=== PATIENT | female | born 1955 | race Caucasian/White ===

== ENCOUNTER 2017-11-17 21:48 | Emergency (ER) | payer BC ==
[2017-11-17 22:26] LABS: #Basophils 0.2 thou/uL (0.0-0.2); #Eosinphils 0.8 thou/uL (0.0-0.7); #Lymphocytes 5.3 thou/uL (1.20-3.40); #Monocytes 1.4 thou/uL (0.11-0.59); %Basophils 1.1 % (0.0-1.0); %Eosinophils 5.3 % (0.0-10.0); %Lymphocytes 33.7 % (21.0-51.0); %Monocytes 8.8 % (0.0-10.0); %Neutrophils 51.2 % (42.0-75.0); Hemoglobin 13.5 g/dL (12.0-16.0); Mean Corpuscular HGB CONC 33.5 g/dL (32.0-36.0); Mean Corpuscular Hemoglobin 33.5 pg (27.0-31.0); Mean Platelet Volume 9.1 fL (7.4-10.4); Platelet Count 260 thou/uL (130-400); RBC Distribution Width 11.8 % (11.5-14.5); Red Blood Cell (RBC) Count 4.03 mill/uL (4.20-5.40); White Blood Cell (WBC) Count 15.6 thou/uL (4.8-10.8)
[2017-11-17 22:43] LABS: ALT (SGPT) 27 U/L (8-55); AST (SGOT) 24 U/L (5-34); Albumin 4.4 g/dL (3.4-4.8); Alkaline Phosphatase 102 U/L (40-150); Anion Gap 13 mmol/L (10-20); BUN (Urea Nitrogen) 29 mg/dL (9.8-20.1); Bilirubin, Total 0.7 mg/dL (0.2-1.2); Calc. Creatinine Clearance 0 mL/min (70-130); Calcium 9.1 mg/dL (7.8-10.44); Carbon Dioxide 20 mmol/L (23-31); Chloride 109 mmol/L (98-107); Estimated GFR-MDRD 36; Globulin 2.6 g/dL (2.4-3.5); Glucose 102 mg/dL (80-115); Lipase 15 U/L (8-78); Potassium 4.4 mmol/L (3.5-5.1); Sodium 138 mmol/L (136-145)
[2017-11-17 22:51] LABS: Bilirubin Small (Negative); Blood, Urine Negative (Negative); Clarity CLOUDY (Clear); Glucose, Urine (Dipstick) Negative (Negative); Leukocyte Moderate (Negative); Nitrite Negative (Negative); Protein, Urine (Dipstick) Negative (Neg-Trace); Specific Gravity, Urine 1.023 (1.002-1.036)
[2017-11-17 22:53] LABS: Bacteria/HPF None Seen HPF (None Seen); Pathc Cast-AUWi Flag 3.11 (0-2.49); Squamous Epithelial 0-3 HPF (0-3)
[2017-11-17 23:00] LABS: Hyaline Casts/LPF 7-10 HYALINE CAST LPF (0-3 Hyaline)
--- NOTE | 2017-11-17 23:42 | CT ---
ABDOMEN AND PELVIC CT NONCONTRAST 11/17/17 COMPARISON: 05/05/17 CLINICAL HISTORY: Abdominal pain. Abdominal cramping new onset. FINDINGS: Imaged lung bases are clear. Evidence of prior cholecystectomy. There is anastomotic suture material seen within bowel of the left abdomen. Postoperative change also seen at the gastroesophageal region. Bowel is incompletely assessed without IV or enteric contrast. There is no urolithiasis or obstructi ve uropathy. There is extensive retained fecal material which is predominately fat density. Scattere d vascular calcification present. There is postoperative change of the lumbosacral spine. Otherwise, no acute process is seen. IMPRESSION: 1. No urolithiasis or obstructive uropathy. 2. Evaluation is otherwise limited on the basis of noncontrast technique. 3. There is extensive retained fecal material in the left colon compatible with constipation. POS: [facility]
== END 2017-11-18 00:05 | disposition home or self-care (01) ==
LOC: ERS 21:48
DX: N39.0 Urinary tract infection, site not specified (principal); K59.00 Constipation, unspecified; F32.9 Major depressive disorder, single episode, unspecified; M06.9 Rheumatoid arthritis, unspecified; I10 Essential (primary) hypertension
CPT/HCPCS: 36415; 74176; 80053; 81003; 81015; 83690; 85025; 96360

== ENCOUNTER 2018-01-22 13:47 | Outpatient (CLI) | payer BC | END 2018-01-22 13:48 | disposition home or self-care (01) | LOC: BICCT 13:47 | PROVIDERS: ATTEND Family Medicine | DX: R10.13 Epigastric pain (principal); J90 Pleural effusion, not elsewhere classified; J18.1 Lobar pneumonia, unspecified organism | CPT/HCPCS: 71250; 74150 ==

== ENCOUNTER 2018-02-08 19:15 | Emergency (ER) | payer BC | END 2018-02-08 19:27 | disposition left against medical advice (07) | LOC: ERS 19:15 | DX: Z53.21 Procedure and treatment not carried out due to patient leaving prior to being seen by health care provider (principal) ==

== ENCOUNTER 2018-05-07 12:41 | Outpatient (CLI) | payer MEDICARE, BC ==
--- NOTE | 2018-05-07 15:20 | CT ---
LUMBAR SPINE CT NONCONTRAST: Date: 05/07/18 CLINICAL HISTORY: Lumbar radiculopathy. Reference made to MRI lumbar spine dated 11/24/16. FINDINGS: There is postoperative fusion, on the left, involving L5-S1, with left L5 and left S1 pedicle screws and an intervening left side vertical jaimee. L5-S1 disc prosthesis is present with osseous incorporatio n spanning the left aspect of the ramona disc space. No significant perihardware lucency. L5-S1: Evidence of prior left laminectomy. Broad based osteophyte ridge is present with mild effacement of t he ventral vertebral canal. There is mild osseous narrowing of each neural foramen. L4-5: Evidence of posterior decompression. There is a broad based disc osteophyte along with bilateral dege nerative facet hypertrophy resulting in mild central canal stenosis. There is moderate left and mild right neural foraminal narrowing. Added soft tissue density of this region may relate to epidural fib rosis, although limited on the basis of this exam. L3-4: There is moderate central canal stenosis. Evidence of prior decompression of the posterior elements. Bilateral moderate neural foraminal stenosis is present. L2-3: There is mild retrolisthesis of L2 on L3. There is mild central canal stenosis with a broad based ost eophyte present. Mild left and moderate right neural foraminal stenosis is demonstrated. There is carlie dence of posterior decompression. L1-2: There is evidence of posterior decompression. Mild effacement of the ventral aspect of the vertebral canal on the basis of broad based disc osteophyte. There is moderate right and mild left neural rohan inal narrowing. T12-L1: Disc osteophyte complex present with mild narrowing of central canal. No high grade osseous compromis e of the neural foramina. There is evidence of vascular calcification and prior cholecystectomy. Multifocal sclerosis of the regional skeletal structures is related to degenerative change. Superimpo sed focal areas of lucency may be related to osseous demineralization. A prominent degree of levoscoliosis is seen, with epicenter at the L2-3 level. IMPRESSION: Postoperative lumbar spine with extensive, multilevel degenerative change as outlined above. POS: [facility]
--- NOTE | 2018-05-07 16:56 | MRI ---
MRI LUMBAR SPINE WITH AND WITHOUT GADOLINIUM CONTRAST: History: Low back pain. Multiple surgeries. FINDINGS: In keeping numbering with previous MRI, the lowest lower lumbar type vertebrae will be designed as th e fifth lumbar level, with the remainder numbered accordingly. Desiccation of all of the intervertebral discs. Prominent multilevel discogenic endplate changes. No acute compression injury is evident. Prominent leftward convex rotatory scoliotic curvature. T12-L1: Diffuse posterior disc bulge. Posterior annular fissure. Circumferential degenerative changes . Mild stenosis of the central canal and left neural foramen. L1-2: Minimal degenerative retrolisthesis. Prominent posterior disc bulge. Circumferential degenerati ve changes. Mild stenosis central canal. Moderate right and mild left foraminal stenosis. L2-3: Minimal degenerative retrolisthesis. Posterior disc bulge and protrusion with minimal inferior extension. Thecal sac is patent. Severe right and moderate left foraminal stenosis. L3-4: Posterior disc bulge. Circumferential degenerative changes with moderate stenosis central canal . Severe bilateral foraminal stenosis. L4-5: Post-operative changes. Mild disc bulge. Thecal sac is patent. Moderate right and severe left f oraminal stenosis. L5-S1: Post-operative changes. Posterior disc protrusion with slight inferior extension. Thecal sac r emains patent. Right neural foramen is patent. Left neural foramen partially obscured by metallic tanna ceptibility artifact. IMPRESSION: Post-operative changes and prominent multilevel degenerative changes throughout the lumbar spine as d etailed above, including multilevel severe foraminal stenoses. POS: JORDANA
--- NOTE | 2018-05-07 17:27 | RAD ---
LUMBAR SPINE FOUR VIEWS: 05/07/2018 HISTORY: Lumbar radiculopathy. The patient complains of low back pain with pain extending down the left leg. History of multiple back surgeries. COMPARISON: 07/15/2015 FINDINGS: There is left convex rotoscoliosis of the thoracolumbar spine, which has increased when compared to p rior exam. Again noted are post surgical changes related to posterior fusion at the lumbosacral junc tion with unilateral left-sided pedicular screw and posterior jaimee transfixing this level. An intradi skal prosthesis is again present at this level and is stable. No hardware complication is identified . While there is prominent left convex rotoscoliosis, there does appear to be trace retrolisthesis of L 3 on L4, but this may be projectional due to rotation, due to scoliotic curvature. There is no obvio us fracture seen. Multilevel osteophytes are seen, and there is osteopenia. Multilevel osteophytes are seen, and there is osteopenia. Laminectomy defects are seen throughout the lumbar spine. Vascul ar calcifications are seen in the abdominal aorta and iliac arteries. Post surgical changes of the a bdomen are seen, with surgical clips overlying the right upper quadrant and multiple ring-like metall ic densities overlying the abdomen and pelvis. There is osteopenia. IMPRESSION: 1. Prominent left convex rotoscoliosis of the thoracolumbar spine, which has increased when compared to the study in 2014, as well as the study on 08/03/2016. 2. Stable postsurgical changes at the lumbosacral junction. 3. Osteopenia and multilevel degenerative changes in the lumbar spine. 4. Laminectomy defects at multiple levels of the lumbar spine. 5. Suggestion of slight retrolisthesis of L2 on L3. POS: [facility]
== END 2018-05-07 12:42 | disposition home or self-care (01) ==
LOC: TBSIIMAG 12:41
PROVIDERS: ATTEND Surgery
DX: M47.26 Other spondylosis with radiculopathy, lumbar region (principal); M85.88 Other specified disorders of bone density and structure, other site; M99.83 Other biomechanical lesions of lumbar region; M47.895 Other spondylosis, thoracolumbar region; Z98.890 Other specified postprocedural states
CPT/HCPCS: 72110; 72131; 72158; 82565

== ENCOUNTER 2018-10-31 11:04 | Outpatient (CLI) | payer MEDICARE, BC ==
--- NOTE | 2018-10-31 14:53 | MRI ---
MAGNETIC RESONANCE ANGIOGRAM MRA HEAD NONCONTRAST: DATE; 10/31/2018. HISTORY: A 63-year-old female with dizziness, disequilibrium, and headache. TECHNIQUE: 3D [id number] MRA acquired in multiple axial slabs through the [place] of [place]. Source images a nd 3D MIP reconstructions evaluated. FINDINGS: Intracranial right vertebral artery is normal in caliber. Bilateral PICAs are patent. The proximal aspect of the left PICA has poor signal intensity, either due to long segment stenosis or technical r easons, but the distal portion is normal. This left PICA communicates with the contralateral right v ertebral artery and basilar artery by a short 0.5 cm length vessel which has the appearance of the di stal-most segment of the left vertebral artery. However, There is nonvisualization of the rest of the left intracranial vertebral artery proximal to the origin of the left PICA. The basilar artery is normal in caliber. Bilateral posterior cerebral arteries are visualized. Ther e is origin of the right posterior cerebral artery. There is also a left-sided posterior commu nicating artery. The left P1 segment, bilateral P2 segments, and bilateral P3 segments, appear iliana l. Proximal portions of bilateral superior cerebellar arteries are visualized. Bilateral carotid siphons are patent. The M1 segments of the bilateral middle cerebral arteries, and their proximal trifurcation branches, and the bilateral A1 and A2 segments of the anterior cerebral arteries, have no evidence of high-grade stenosis or occlusion. No evidence of aneurysm larger than 3 mm. IMPRESSION: 1. Please note that an MRA of the head without an accompanying MRI is incomplete and can result in m isleading conclusions. Therefore, MRI of the brain is recommended. 2. Nonvisualization of the proximal aspect of the intracranial left vertebral artery. Uncertain whe ther this is a normal variant in which the left PICA (posterior-inferior cerebellar artery) arises fr om the junction between the right vertebral artery and basilar artery, or there is occlusion of the i ntracranial left vertebral artery (In either case, flow to the left PICA is supplied by cross over fl ow from the contralateral right vertebral artery). The former is favored. This can be further evalu ated with CT Angiogram of neck and head. 4. The rest of the intracranial major arteries demonstrate no pathology. POS: MARITO
== END 2018-10-31 11:05 | disposition home or self-care (01) ==
LOC: MRI 11:04
PROVIDERS: ATTEND Family Medicine
DX: R51 Headache (principal); H81.10 Benign paroxysmal vertigo, unspecified ear; R27.0 Ataxia, unspecified
CPT/HCPCS: 70544

== ENCOUNTER 2018-11-14 08:14 | Outpatient (CLI) | payer MEDICARE, BC ==
--- NOTE | 2018-11-14 10:13 | MRI ---
MRI BRAIN WITH AND WITHOUT IV CONTRAST: HISTORY: Episodic headache, dizziness. FINDINGS: No restricted diffusion is seen. No evidence of transcortical infarct, hemorrhage, mass, midline georgie ft, or abnormal extraaxial fluid collections is seen. There is a small, old lacunar infarction in th e right cerebellar hemisphere. Multiple foci of T2 prolongation are seen in the periventricular whit e matter, consistent with chronic small vessel ischemic disease. No abnormal post contrast enhanceme nt is noted. The visualized paranasal sinuses and mastoid air cells are well aerated. IMPRESSION: Chronic changes. No evidence of acute intracranial process or mass. POS: C
== END 2018-11-14 08:15 | disposition home or self-care (01) ==
LOC: BICMRI 08:14
PROVIDERS: ATTEND Nurse Practitioner Acute Care
DX: R51 Headache (principal); H81.10 Benign paroxysmal vertigo, unspecified ear; R27.0 Ataxia, unspecified
CPT/HCPCS: 70553; 82565

== ENCOUNTER 2018-12-10 08:56 | Outpatient (CLI) | payer MEDICARE, BC ==
--- NOTE | 2018-12-10 14:11 | CT ---
CTA HEAD WITH CONTRAST: CTA NECK WITH CONTRAST: CTA NECK WITH CONTRAST: Multiple axial tomograms are obtained through the neck following angio protocol with multiplanar leonie nstruction and 3D postprocessing. INDICATION: Followup recent MRA of head which revealed possible occlusion of the intracranial left vertebral justa ry. CTA neck was recommended to further evaluate. FINDINGS: There is no evidence of stenosis at the origin of the arch vessels. Both common carotid arteries ciera ear unremarkable. Atherosclerotic change is seen in bulb and proximal ICAs bilaterally. This results in mild stenosis of the proximal right internal carotid artery; however, this does not appear to be hemodynamically si gnificant. No significant stenosis in the left ICA identified. The right vertebral artery is patent and unremarkable. The left vertebral artery is not visualized and is apparently occluded at its origin. There is mild retrograde flow of the intracranial left vertebral at the junction at the basilar artery and there is flow seen in the left PICA. Soft tissues show asymmetry to the left piriform sinus. A small mucosal lesion at this site cannot b e excluded. Recommend direct evaluation with ENT consultation. IMPRESSION: 1. 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 There is mild retrograde flow in the intra cranial portion of the left vertebral as described. 2. Mild atherosclerotic change at both proximal internal carotid arteries with mild stenosis on the right which does not appear to be hemodynamically significant. 3. Mucosal asymmetry in the hypopharynx involving the left piriform sinus. Recommend this be direct ly evaluated with ENT consultation to rule out a small mucosal lesion. CTA HEAD WITH AND WITHOUT CONTRAST: Multiple axial tomograms were obtained through the head without IV enhancement. This was followed by multiple tomograms through the head with IV contrast following an angio protocol with multiplanar re construction and 3D postprocessing. INDICATION: Followup prior MRA exam which questioned occlusion of the left vertebral artery. FINDINGS: Noncontrast head CT shows no evidence of mass, edema, or infarct. Ventricles have normal size and po sition. Sinuses and mastoids appear clear. CTA of head shows patent intracranial internal carotid arteries. The anterior cerebral arteries and middle cerebral arteries appear patent and symmetric. Basilar artery is patent. There is retrograde flow in the intracranial portion of the left vertebral as noted on CTA of neck. The left vertebral appears to be occluded at its origin. See CTA neck report. Posterior cerebrals appear symmetric. IMPRESSION: Unremarkable CTA head. See CTA neck exam regarding occlusion of the left vertebral artery at its cristofer gin. POS: MAR[facility]O
[2018-12-10] MEDS ORDERED: ISOVUE-370 76%-LOCM 1 ML ONE (16:28)
== END 2018-12-10 08:57 | disposition home or self-care (01) ==
LOC: BICCT 08:56
PROVIDERS: ATTEND Nurse Practitioner Acute Care
DX: R51 Headache (principal); I65.02 Occlusion and stenosis of left vertebral artery; I65.21 Occlusion and stenosis of right carotid artery; I70.0 Atherosclerosis of aorta
CPT/HCPCS: 70496; 70498; 82565; Q9966

== ENCOUNTER 2019-04-19 14:36 | Outpatient (CLI) | payer MEDICARE, BC ==
--- NOTE | 2019-04-19 14:53 | RAD ---
XR Chest Pa Lat STANDARD HISTORY: Cough for 2 weeks COMPARISON: None. FINDINGS: Heart size is borderline. There are atherosclerotic changes of the aorta. The lungs are dayan ar of infiltrates. There are no signs of failure. IMPRESSION: Borderline to minimal cardiomegaly.
== END 2019-04-19 14:37 | disposition home or self-care (01) ==
LOC: BICRAD 14:36
PROVIDERS: ATTEND Family Medicine
DX: J18.9 Pneumonia, unspecified organism (principal); I51.7 Cardiomegaly
CPT/HCPCS: 71046

== ENCOUNTER 2019-10-31 11:34 | Outpatient (CLI) | payer MEDICARE, BC ==
--- NOTE | 2019-11-14 13:26 | MMO ---
Bilateral MAMMO Bilat Screen [facility]. CLINICAL HISTORY: Patient is 64 years old and is seen for screening. The patient has the following family history of breast cancer: aunt, malignant (generic). The patient has no personal history of cancer. VIEWS: The views performed were: bilateral craniocaudal with tomosynthesis and bilateral mediolateral oblique with tomosynthesis. FILMS COMPARED: The present examination has been compared to prior imaging studies performed at [facility] on 08/05/2015, 08/04/2016 and 03/08/2018. This study has been interpreted with the assistance of computer-aided detection. MAMMOGRAM FINDINGS: There are scattered fibroglandular densities. There are stable benign appearing calcifications seen in both breasts. There are no suspicious masses, suspicious calcifications, or new areas of architectural distortion. IMPRESSION: THERE IS NO MAMMOGRAPHIC EVIDENCE OF MALIGNANCY. A ROUTINE FOLLOW-UP MAMMOGRAM IN 1 YEAR IS RECOMMENDED. THE RESULTS OF THIS EXAM WERE SENT TO THE PATIENT. ACR BI-RADS Category 2 - Benign finding MAMMOGRAPHY NOTE: 1. A negative mammogram report should not delay a biopsy if a dominant of clinically suspicious mass is present. 2. Approximately 10% to 15% of breast cancers are not detected by mammography. 3. Adenosis and dense breasts may obscure an underlying neoplasm. Reported by: ARTHUR LUCIO MD Electonically Signed: [id number]
== END 2019-10-31 11:35 | disposition home or self-care (01) ==
LOC: BICMAMMO 11:34
PROVIDERS: ATTEND Family Medicine
DX: Z12.31 Encounter for screening mammogram for malignant neoplasm of breast (principal); Z80.3 Family history of malignant neoplasm of breast
CPT/HCPCS: 77063; 77067

== ENCOUNTER 2020-06-04 14:08 | Outpatient (CLI) | payer MEDICARE, BC, OTHER ==
[2020-06-05 13:53] LABS: SARS-CoV-2 MS2 Positive; SARS-CoV-2 N Gene Negative; SARS-CoV-2 S Gene Negative; SARS-CoV-2 by NAA Not Detected (NotDetected); SARS-CoV-2 orf1ab Negative
== END 2020-06-04 14:09 | disposition home or self-care (01) ==
LOC: LABBT 14:08
PROVIDERS: ATTEND Specialist
DX: Z53.8 Procedure and treatment not carried out for other reasons (principal); Z20.828 Contact with and (suspected) exposure to other viral communicable diseases
CPT/HCPCS: 87635; U0003

== ENCOUNTER 2020-07-01 13:07 | Outpatient (CLI) | payer MEDICARE, BC ==
--- NOTE | 2020-07-01 14:29 | RAD ---
XR Lumbar Spine Min 4 View History: Lumbar radiculopathy Comparison: Lumbar spine MRI same day Findings: Left posterior spinal fusion hardware at L5/S1 with discectomy cage without migration. Ailyn re levoscoliosis of the lumbar spine. Large gas bubble within the sigmoid colon limits evaluation of the lower lumbar spine on the AP radiograph. Grade 1 L1/L2, L2/L3, L3/L4 retrolisthesis which appears to be fixed although limited given the amoun t of scoliosis. Impression: Multilevel retrolisthesis for which translation evaluation is limited due to the extensiv e scoliotic change.
--- NOTE | 2020-07-01 14:36 | MRI ---
MRI lumbar spine noncontrast: HISTORY: Patient fell 3 weeks ago. Previous back surgery. Patient having bilateral hip and back pain. COMPARISON: 05/07/2018 FINDINGS: Stable type I and type II Modic changes involving the L1-L2, L2-L3, L3-L4, and L4-L5 levels. There ar e unilateral transpedicular screws at L5 and S1 with associated metallic susceptibility artifact. Limited evaluation the solid organs and paraspinal muscles. There is significant motion degradation o n the axial images. Grossly no abnormality. Conus medullaris terminates near the L1-L2 disc space. Stable leftward curvature of the upper lumbar spine and a rightward curvature of the lower lumbar spi ne. There is no evidence of a vertebral body fracture. T12-L1:Disc desiccation with moderate loss of disc space height. Broad-based disc bulge with minimal inferior and superior disc migration. No significant central canal stenosis. Moderate bilateral neural foraminal narrowing L1-L2: Disc desiccation with moderate to severe loss of disc space height. Posterior laminectomy defe ct. Broad-based disc bulge with at least mild central canal stenosis. Moderate bilateral neural foraminal narrowing. L2-L3:Disc desiccation with moderate to severe loss of disc space height. Posterior laminectomy defec t. Broad-based disc bulge with at least mild central canal stenosis. Moderate to severe right and moderate left neural foraminal narrowing L3-L4:Disc desiccation with mild loss of disc space height. Broad-based disc bulge, ligament flavum t hickening and facet hypertrophy result in moderate central canal stenosis. There is a laminectomy defect. Moderate to severe bilateral neural foraminal narrowing L4-L5:Disc desiccation with moderate loss of disc space height. Broad-based disc bulge. There is bila teral facet hypertrophy. No significant central canal stenosis. Posterior laminectomy defect. Moderate right and likely severe left neural foraminal narrowing L5-S1:Disc prosthesis. No evidence of high-grade central canal stenosis. There is a posterior laminec guru defect. Mild right neural foraminal narrowing. Limited-left neural foramen. There is at least mild left foraminal narrowing. IMPRESSION: 1. Postsurgical changes/fusion changes as described above. 2. Varying degrees of central canal stenosis and neural foramina as detailed above. Transcribed Date/Time: 07/01/2020 2:52 PM
== END 2020-07-01 13:08 | disposition home or self-care (01) ==
LOC: TBSIIMAG 13:07
PROVIDERS: ATTEND Surgery
DX: M54.16 Radiculopathy, lumbar region (principal); M43.16 Spondylolisthesis, lumbar region; M48.061 Spinal stenosis, lumbar region without neurogenic claudication; M48.07 Spinal stenosis, lumbosacral region; M48.05 Spinal stenosis, thoracolumbar region; Z98.1 Arthrodesis status
CPT/HCPCS: 72110; 72148; 72158; 82565

== ENCOUNTER 2020-08-30 03:24 | Emergency (ER) | payer MEDICARE, BC ==
[2020-08-30] MEDS ORDERED: Aspirin Chewable 81 MG TAB ONE (03:33)
[2020-08-30] MEDS ORDERED: Nitroglycerin 2% Ointment 1 INCH/1 GM Packet ONE (03:37)
[2020-08-30] MEDS ORDERED: Lorazepam 2 MG/ML VIAL ONE (03:37)
[2020-08-30 03:44] LABS: #Basophils 0.1 thou/uL (0.0-0.2); #Eosinphils 0.6 thou/uL (0.0-0.7); #Lymphocytes 3.2 thou/uL (1.20-3.40); #Monocytes 0.8 thou/uL (0.11-0.59); #Neutrophils 4.3 thou/uL (1.40-6.50); %Eosinophils 6.5 % (0.0-10.0); %Lymphocytes 35.9 % (21.0-51.0); %Neutrophils 47.7 % (42.0-75.0); Hemoglobin 13.7 g/dL (12.0-16.0); Mean Corpuscular HGB CONC 32.9 g/dL (32.0-36.0); Mean Corpuscular Volume 91.2 fL (78.0-98.0); Mean Platelet Volume 8.6 fL (7.4-10.4); Platelet Count 220 thou/uL (130-400); Red Blood Cell (RBC) Count 4.57 mill/uL (4.20-5.40)
[2020-08-30 04:07] LABS: ALT (SGPT) 33 U/L (8-55); AST (SGOT) 37 U/L (5-34); Albumin 4.2 g/dL (3.4-4.8); Alkaline Phosphatase 119 U/L (40-110); Anion Gap 14 mmol/L (10-20); BUN (Urea Nitrogen) 19 mg/dL (9.8-20.1); Bilirubin, Total 0.5 mg/dL (0.2-1.2); Calc. Creatinine Clearance 0 mL/min (70-130); Calcium 9.4 mg/dL (7.8-10.44); Carbon Dioxide 27 mmol/L (23-31); Chloride 102 mmol/L (98-107); Estimated GFR-MDRD 71; Globulin 3.3 g/dL (2.4-3.5); Glucose 99 mg/dL (80-115); Potassium 3.6 mmol/L (3.5-5.1); Protein, Total 7.5 g/dL (6.0-8.3); Sodium 139 mmol/L (136-145)
[2020-08-30] MEDS ORDERED: Pregabalin 75 MG CAP PO SCH (05:00)
[2020-08-30] MEDS ORDERED: Acetaminophen 500 MG TAB ONE (05:01)
--- NOTE | 2020-08-30 08:47 | RAD ---
PORTABLE CHEST 1 VIEW: Date: 08/30/2020 Time: 0352 hours HISTORY: Chest pain. COMPARISON: 04/19/2019. FINDINGS: The heart size is borderline. The lungs are well expanded without focal areas of consolidation, pneum othoraces, robert pulmonary edema, or pleural effusions. IMPRESSION: No acute process. POS: RONEN
== END 2020-08-30 05:37 | disposition home or self-care (01) ==
LOC: ERS 03:24
DX: F41.1 Generalized anxiety disorder (principal); I10 Essential (primary) hypertension; M06.9 Rheumatoid arthritis, unspecified; F32.9 Major depressive disorder, single episode, unspecified; Z79.899 Other long term (current) drug therapy
CPT/HCPCS: 71045; 80053; 83605; 83880; 84484; 85025; 85379; 93005; 96374; J2060

== ENCOUNTER 2021-02-25 10:26 | Outpatient (CLI) | payer MEDICARE, BC | END 2021-02-25 10:27 | disposition home or self-care (01) | LOC: BICCT 10:26 | PROVIDERS: ATTEND Family Medicine | DX: J18.9 Pneumonia, unspecified organism (principal); M54.5 Low back pain; M54.6 Pain in thoracic spine; K63.89 Other specified diseases of intestine; Z98.84 Bariatric surgery status | CPT/HCPCS: 71046; 74177 ==

== ENCOUNTER 2021-03-22 10:38 | Outpatient (CLI) | payer MEDICARE, BC | END 2021-03-22 10:39 | disposition home or self-care (01) | LOC: RAD 10:38 | PROVIDERS: ATTEND Internal Medicine Gastroenterology | DX: R93.3 Abnormal findings on diagnostic imaging of other parts of digestive tract (principal); M41.9 Scoliosis, unspecified; R19.5 Other fecal abnormalities; Z98.890 Other specified postprocedural states | CPT/HCPCS: 74250 ==